=== PATIENT | female | born 1980 | race Caucasian/White ===

== ENCOUNTER 2021-11-20 16:24 | Emergency (ER) | payer OTHER ==
[~2021-11-20 16:24] MED LIST: COLACE 100MG C100 MG PO; IBUPROFEN600 MG PO
[2021-11-20] MEDS ORDERED: IBUPROFEN600 MG PO (20:52)
[2021-11-20] MEDS ORDERED: NORFLEX 100 MG100 MG PO (20:52)
== END 2021-11-20 21:11 | disposition home or self-care (01) ==
LOC: ER1 16:24
DX: S16.1XXA Strain of muscle, fascia and tendon at neck level, initial encounter (principal); S29.012A Strain of muscle and tendon of back wall of thorax, initial encounter; I10 Essential (primary) hypertension; E11.9 Type 2 diabetes mellitus without complications; F17.210 Nicotine dependence, cigarettes, uncomplicated; V49.9XXA Car occupant (driver) (passenger) injured in unspecified traffic accident, initial encounter
CPT/HCPCS: 71111; 72100; 72125; 99284